=== PATIENT | male | born 1980 | race Caucasian/White ===

== ENCOUNTER 2019-07-01 20:17 | Emergency (ER) | payer SELFPAY ==
[2019-07-01] MEDS ORDERED: Diph,Pert(Acell),Tet Vac 0.5 ML SYR IM ONE (20:29)
--- NOTE | 2019-07-01 20:41 | Emergency Department Record ---
History of Present Illness - General Chief Complaint: Laceration(s) Stated Complaint: RT HAND LAC Time Seen by Provider: 07/01/19 20:23 Source: Patient Mode of Arrival: Ambulatory Limitations: No limitations - History of Present Illness Initial Commments: 39 yo male presents to ED for evaluation following injury to the left thumb. Patient was working with a spring on his vehicle, the spring let loose resulting in injury to the base of the thumb. Patient reports limited ability to flex the thumb on examination, denies other injury on examination. Patient denies other injury on examination, denies health problems at his baseline. Onset/Timin -: Minutes(s) Extremity Location: Left: Hand Place: Home Context: Accidental Associated Symptoms: None Treatments Prior to Arrival: Bandage - [place] Coma Scale Eye Response: (4) Open spontaneously Motor Response: (6) Obeys commands Verbal Response: (5) Oriented [place] Total: 15 - Related Data Hx Tetanus Toxoid Vaccination: No Patient Tetanus UTD (within 5 yrs): No Home Medications Medication Instructions Recorded Confirmed Last Taken Tadalafil 20 mg PO DAILY 07/01/19 07/01/19 Unknown Previous Rx's Medication Instructions Recorded Doxycycline Hyclate 100 mg PO BID #20 cap 07/01/19 Allergies Allergy/AdvReac Type Severity Reaction Status Date / Time No Known Drug Allergies Allergy Unverified 09/26/17 13:11 Travel Screening - Travel/Exposure Within Last 30 Days Have you traveled within the last 30 days?: No - Travel/Exposure Within Last Year Have you traveled outside the [place] in the last year?: No - Additonal Travel Details Have you been exposed to anyone with a communicable illness?: No - Travel Symptoms Symptom Screening: None Review of Systems Constitutional: Denies: Chills, Fever, Malaise, Night sweats Eyes: Denies: Eye discharge, Eye pain ENT: Denies: Congestion, Ear pain, Epistaxis Respiratory: Denies: Cough, Dyspnea Cardiovascular: Denies: Chest pain, Dyspnea on exertion Endocrine: Denies: Fatigue, Heat or cold intolerance Gastrointestinal: Denies: Abdominal pain, Nausea, Vomiting Genitourinary: Denies: Incontinence, Retention Musculoskeletal: Denies: Arthralgia, Back pain Skin: Reports: Other (Laceration to the base of the left thumb). Denies: Bruising, Change in color Neurological: Denies: Abnormal gait, Confusion, Headache, Seizure Psychiatric: Denies: Anxiety Hematological/Lymphatic: Denies: Anemia, Blood Clots Past Medical History - SOCIAL HISTORY Smoking Status: Never smoker Alcohol Use: Occasional Drug Use: Heavy Drug Use Detail:: Marijuana - RESPIRATORY Hx Respiratory Disorders: Yes Hx Dyspnea: Yes (weight related) - CARDIOVASCULAR Hx Cardio Disorders: No - NEURO Hx Neuro Disorders: No - GI Hx GI Disorders: No - Hx Genitourinary Disorders: No - ENDOCRINE Hx Endocrine Disorders: No - MUSCULOSKELETAL Hx Musculoskeletal Disorders: No - PSYCH Hx Psych Problems: No - HEMATOLOGY/ONCOLOGY Hx Hematology/Oncology Disorders: No Family Medical History Any Significant Family History?: No Physical Exam - General General Appearance: Alert, Oriented x3, Cooperative, Mild distress Limitations: No limitations - Head Head exam: Atraumatic, Normocephalic, Normal inspection Head exam detail: negative: Abrasion, Contusion, Gonzalez's sign, General tenderness, Hematoma, Laceration - Eye Eye exam: Normal appearance. negative: Conjunctival injection, Periorbital swelling, Periorbital tenderness, Scleral icterus - ENT Ear exam: negative: Auricular hematoma, Auricular trauma Nasal Exam: negative: Active bleeding, Discharge, Dried blood, Foreign body Mouth exam: negative: Drooling, Laceration, Muffled voice, Tongue elevation - Neck Neck exam: Normal inspection. negative: Meningismus, Tenderness - Respiratory Respiratory exam: Normal lung sounds bilaterally. negative: Rales, Respiratory distress, Rhonchi, Stridor - Cardiovascular Cardiovascular Exam: Regular rate, Normal rhythm, Normal heart sounds - GI/Abdominal GI/Abdominal exam: Soft. negative: Rebound, Rigid, Tenderness - Rectal Rectal exam: Deferred - exam: Deferred - Extremities Extremities exam: Tenderness, Other (4.5 cm curilinear laceration to the base of the left thumb on examination, limited ability to extend the thumb on examination. ). negative: Calf tenderness, Pedal edema - Back Back exam: Denies: CVA tenderness (R), CVA tenderness (L) - Neurological Neurological exam: Alert, Normal gait, Oriented X3 - Psychiatric Psychiatric exam: Normal affect, Normal mood - Skin Skin exam: Normal color. negative: Abrasion Type of lesion: negative: abrasion Course Vital Signs 07/01/19 20:21 Temperature 99 F Pulse Rate [ 70 Pulse Ox Probe] Respiratory 20 Rate Blood Pressure 138/84 [Left Arm] Pulse Ox 96 - Reevaluation(s) Reevaluation #1: 07/01/19 23:10 Right thumb: Minimally displaced comminuted fracture to the first metatarsal Case was discussed with Dr. Cho, will have the patient follow-up tomorrow morning at 8:00 AM. Procedure Note: 4.0 cm laceration to the right, bleeding controlled. Wound was cleaned and prepped in sterile fashion, no residual FB identified on examination. Wound was anesthetized with 1.0 mL of 1% Lidocaine with epinephrine with good anesthesia, and the laceration was repaired with 4-0 Prolene (#10) sutures in interrupted fashion. Patient tolerated the procedure well without complications. Patient's tetanus was updated prior to discharge. Patient was also started on Doxycycline prior to discharge given the location of the patient's laceration. Patient and his mother were given wound care instructions and signs/symptoms to return to the ED for as well including: increased swelling, pain, redness, or discharge from the wound. Patient was placed in thumb spica splint. Patient was instructed to follow-up with Dr. Cho tomorrow morning at 8:00 AM. Disposition Disposition: Discharge Clinical Impression: Open fracture of left thumb Qualifiers: Encounter type: initial encounter Phalanx: proximal Fracture alignment: displaced Qualified Code(s): S62.512B - Displaced fracture of proximal phalanx of left thumb, initial encounter for open fracture Disposition: Home, Self-Care Condition: (2) Stable Instructions: Thumb Fracture (ED) Additional Instructions: Return to ED if your symptoms worsen or if you have any concerns. Doxycycline as directed. Follow-up with Dr. Cho in 1-3 days as directed. Prescriptions: Doxycycline Hyclate 100 mg PO BID #20 cap Referrals: ANA LILIA CHO M.D. [MEDICAL DOCTOR] - Forms: Patient Portal Access Time of Disposition: 21:20 Quality - Quality Measures Quality Measures: N/A - Blood Pressure Screening Does Patient Have Any of the Following: No Blood Pressure Classification: Pre-Hypertensive BP Reading Systolic Measurement: 120 Diastolic Measurement: 79 Screening for High Blood Pressure: < Pre-Hypertensive BP, F/U Documented > [[id number]] Pre-Hypertensive Follow-up Interventions: Referral to alternative/primary care provider.
[2019-07-01] MEDS ORDERED: DOXYCYCLINE HYCLATE 100 MG CAPSULE PO ONE (21:21)
--- NOTE | 2019-07-02 09:53 | RADIOLOGY REPORT ---
EXAM: LEFT THUMB HISTORY: LACERATION OF LEFT THUMB. TECHNIQUE: Three views of the left thumb were obtained. Comparison: None. FINDINGS: There are displaced small fractures associated with a nondisplaced oblique fracture of the distal shaft of the metaphysis of the first metacarpal bone. The phalanges of the thumb appear intact. The joints are preserved. No radiopaque foreign body. IMPRESSION: OBLIQUE FRACTURE DISTAL METAPHYSIS OF THE LEFT FIRST METACARPAL BONE WITH DISPLACEMENT OF CORTICAL FRAGMENTS OF BONE AT SITE OF LACERATION. JOB NUMBER: [id number] [facility]
== END 2019-07-01 21:40 | disposition home or self-care (01) ==
LOC: ER 20:17
DX: S62.512B Displaced fracture of proximal phalanx of left thumb, initial encounter for open fracture (principal); W22.8XXA Striking against or struck by other objects, initial encounter; Y92.009 Unspecified place in unspecified non-institutional (private) residence as the place of occurrence of the external cause
CPT/HCPCS: 12002; 90715; 96372; 99284